=== PATIENT | female | born 1965 | race Caucasian/White ===

== ENCOUNTER 2018-12-03 13:19 | Inpatient (IN) ==
--- NOTE | 2018-12-03 13:57 | Diag Imaging Result Doc PS360 ---
EXAM: CT ABDOMEN/PELVIS W/O CONTRAST 12/03/2018 HISTORY: FLANK PAIN TECHNIQUE: This exam was performed using automated exposure control, adjustment of mA or kV according to patient size, and/or use of iterative reconstruction technique. COMMENT: The current study is compared with the previous examination of 08/04/2016. There are atelectatic changes present in the left lower lobe. There are multiple cysts in the liver which were also present previously. There has been cholecystectomy. There is no evidence of nephrolithiasis or hydronephrosis. There is induration in the mesenteric fat adjacent to the inferior tip of the liver which is associated with multiple surgical clips and which was apparently present previously. There is an ileostomy. There is dilatation of multiple small bowel loops in the midabdomen, which are closely opposed to one another, some of which contain fecalized material. This was not the case at the time the previous examination. The distal small bowel is normal in caliber. The urinary bladder is not distended. There is no evidence of free fluid or free air. The aorta is not distended. The regional skeleton appears to be intact. IMPRESSION: Partial small bowel obstruction presumably due to adhesions. Electronically signed by Taurus Alex 12/03/2018 1:55 PM
[2018-12-03] MEDS ORDERED: NS 1,000 ML IV ONE ×2 (14:01→14:02)
[2018-12-03] MEDS ORDERED: ZOFRAN IV ONE (14:01)
[2018-12-03] MEDS ORDERED: MORPHINE IV ONE (14:01)
[2018-12-03 14:56] LABS: INR 0.89; PROTIME 12.1 Seconds (11.0-16.0)
[2018-12-03 14:57] LABS: PTT 28.1 Seconds (22.3-41.8)
[2018-12-03] MEDS ORDERED: DILAUDID IV ONE (15:08)
[2018-12-03] MEDS ORDERED: ATIVAN IV ONE (15:08)
--- NOTE | 2018-12-03 15:15 | PROVIDER DOCUMENTATION ---
This chart was entered by Massiel Freitas Scribe, acting as scribe for Lobito Franz MD. HPI-Abdominal Pain/GI Problem - General Chief Complaint: Abdominal Pain Stated Complaint: STOMACH PAIN Time Seen by Provider: 12/03/18 13:58 Source: patient, family Allergies/Adverse Reactions: Patient Allergies Allergy/AdvReac Type Severity Reaction Status Date / Time cefdinir [Cefdinir] Allergy ITCHING Verified 10/19/15 12:29 cefepime Allergy ABDOMINAL Verified 10/19/15 12:29 PAIN piperacillin Allergy NAUSEA/VOMI Verified 10/19/15 12:29 TING Quinolones Allergy NAUSEA/VOMI Verified 10/19/15 12:29 TING tazobactam Allergy ITCHING Verified 10/19/15 12:29 vancomycin Allergy RASH Verified 10/19/15 12:29 Home Medications: Home Medication List Medication Instructions Recorded Confirmed Last Taken Type Montelukast Sodium [Singulair] 10 mg PO DAILY 12/24/11 10/19/15 10/18/15 History Oxycodone E.r. [Oxycontin] 20 mg PO BID #1 tablet 10/10/13 10/19/15 10/18/15 Rx Oxycodone E.r. [Oxycontin] 40 mg PO DAILY@1300 #1 tablet 10/10/13 10/19/15 10/18/15 Rx Acetaminophen [Tylenol] 650 mg PO Q4H PRN PRN #0 tablet 01/23/15 10/19/15 10/18/15 Rx Chlorhexidine Gluconate [Peridex] 15 ml MT BID #0 udc 01/23/15 10/19/15 10/18/15 Rx Clonazepam [Klonopin] 0.5 mg PO DAILY #0 tablet 01/23/15 10/19/15 10/18/15 Rx Duloxetine [Cymbalta] 90 mg PO DAILY #0 capsule 01/23/15 10/19/15 10/18/15 Rx Fluticasone/Salmet 250/50 INH 1 puff INH BID #0 inhaler 01/23/15 10/19/15 10/18/15 Rx [Advair 250/50 Diskus] Metoclopramide [Reglan] 5 mg PO AC + HS #120 tablet 01/23/15 10/19/1516 Rx Prednisone 5 mg PO DAILY #0 tablet 01/23/15 10/19/15 10/18/15 Rx Pregabalin [Lyrica] 200 mg PO BID #0 capsule 01/23/15 10/19/15 10/18/15 Rx Sucralfate [Carafate Liquid] 1 gm PO Q6HR #120 udc 01/23/15 10/19/15 10/18/15 Rx Tamsulosin [Flomax] 0.4 mg PO BID #0 capsule 01/23/15 10/19/15 10/18/15 Rx Esomeprazole [Nexium] 40 mg PO DAILY 10/19/15 10/19/15 10/18/15 History Clonazepam [Klonopin] 0.5 mg PO TID@0900,1500,2100 #0 11/03/15 Unknown Rx tablet Levofloxacin [Levaquin] 500 mg PO DAILY #7 tablet 11/03/15 Unknown Rx Metronidazole 500 mg/Ns [Flagyl 500 mg PO Q8H #20 cap 11/03/15 Unknown Rx 500 mg/Ns] Oxycodone HCl/Acetaminophen 1 each PO 4XDAY PRN 11/03/15 11/03/15 Unknown History [Percocet 10-325 mg Tablet] Polyethylene Glycol 3350 [Miralax] 17 gm PO BID #0 powder, packet 11/03/15 Unknown Rx - History of Present Illness-ABD Nature of Presenting Problems: 53 year old female presents to the ER with complaint of abdominal pain that started early this am. Pt has an ileostomy. Pt states the ostomy has produced only minimal fluid this am. Pt states she had nuts yesterday which has caused her problems in the past. Pt has had bowel obstructions in the past. Abdominal Pain Onset Location: reports: generalized abdomen Onset/Duration: reports: this morning Timing: reports: still present Modifying Factors: improves with: eating (pt ate peanuts) Associated Symptoms: reports: nausea Review of Systems - Adult - REVIEW OF SYSTEMS - ADULT Constitutional: denies: chills, fever Eyes: reports: no symptoms reported Ears, Nose, Mouth & Throat: reports: no symptoms reported Cardiovascular: reports: no symptoms reported Respiratory: reports: no symptoms reported Gastrointestinal: reports: abdominal pain, nausea Genitourinary: reports: no symptoms reported Musculoskeletal: reports: no symptoms reported Integumentary: reports: no symptoms reported Neurological: reports: no symptoms reported Psychiatric: reports: no symptoms reported Endocrine: reports: no symptoms reported Hematologic/Lymphatic: reports: no symptoms reported Allergic/Immunologic: reports: no symptoms reported All Other Systems: Reviewed and Negative Past History - Adult - PAST MEDICAL HISTORY-ADULT Review of Records: reports: Nursing Assessment Review, Medications Reviewed Major Childhood Illnesses: reports: denies history Respiratory: reports: asthma Gastrointestinal: reports: colitis - PRIOR SURGERIES/PROCEDURES Surgical/Procedure History: reports: bowel surgery (ileostomy) - IMMUNIZATION STATUS Childhood Immunizations: See Nurse Assessment Flu Vaccine: See Nurse Assessment Physical Exam-General - PHYSICAL EXAM-ADULT Initial Vital Signs Reviewed: Yes - CONSTITUTIONAL General Appearance: alert, mild distress - EYES Eyes: PERRL/EOMI, pink conjunctivae - HEAD, EARS, NOSE, MOUTH & THROAT HENMT: normocephalic/atraumatic, normal ENT inspection - NECK Neck: non-tender, supple - RESPIRATORY Respiratory: lungs clear, normal breath sounds - CARDIOVASCULAR Cardiovascular: normal peripheral pulses, regular rate, rhythm - GASTROINTESTINAL (ABDOMEN) Abdominal Exam: abnormal bowel sounds, tenderness - MUSCULOSKELETAL Back Exam: no CVA tenderness, no vertebral tenderness Extremity: non-tender, normal inspection - SKIN Integumentary: normal color, warm/dry - NEUROLOGIC Neurologic: grossly normal, no motor/sensory deficits - PSYCHIATRIC Psych/Mental Status: normal mood/affect, normal thought content, normal thought process, oriented x 3 Progress - PLAN OF CARE/RESULTS Progress/Plan/Lab Results: Vital Signs - 8 hr 12/03/18 13:20 Temperature 98.4 F Pulse Rate 129 H Respiratory Rate 18 Blood Pressure 193/104 O2 Sat by Pulse Oximetry 98 Orders Category Date Time Status Saline Loc NOW Care 12/03/18 13:[address] ABDOMEN/PELVIS W/O CONTRAST [CT] Stat Exams 12/03/18 13:27 Completed CBC WITH DIFF [HEME] Stat Lab 12/03/18 13:58 Uncollected COMPREHENSIVE METABOLIC PANEL [CHEM] Stat Lab 12/03/18 13:58 Uncollected MAGNESIUM [CHEM] Stat Lab 12/03/18 13:58 Uncollected PROTIME WITH INR [COAG] Stat Lab 12/03/18 13:58 Uncollected PTT [COAG] Stat Lab 12/03/18 13:58 Uncollected Result Diagrams: 12/03/18 14:30 - CT/MRI 1 CT Study: Abdomen Impression: Abnormal, See EMR Report (EXAM: CT ABDOMEN/PELVIS W/O CONTRAST 12/03/2018 HISTORY: FLANK PAIN TECHNIQUE: This exam was performed using automated exposure control, adjustment of mA or kV according to patient size, and/or use of iterative reconstruction technique. COMMENT: The current study is compared with the previous examination of 08/04/2016. There are atelectatic changes present in the left lower lobe. There are multiple cysts in the liver which were also present previously. There has been cholecystectomy. There is no evidence of nephrolithiasis or hydronephrosis. There is induration in the mesenteric fat adjacent to the inferior tip of the liver which is associated with multiple surgical clips and which was apparently present previously. There is an ileostomy. There is dilatation of multiple small bowel loops in the midabdomen, which are closely opposed to one another, some of which contain fecalized material. This was not the case at the time the previous examination. The distal small bowel is normal in caliber. The urinary bladder is not dist ended. There is no evidence of free fluid or free air. The aorta is not distended. The regional skeleton appears to be intact. IMPRESSION: Partial small bowel obstruction presumably due to adhesions.) CT Results: per radiologist Departure - Departure Date of Disposition Decision: 12/03/18 Time of Disposition Decision: 15:15 DIAGNOSIS: SBO (small bowel obstruction) Disposition: ADMITTED INPATIENT 09 Certified Medical Emergency: Emergent Condition: Stable Referrals and Follow-Ups: Mark Mendieta DO [Primary Care Provider] - - Critical Care Note This patient required my direct & personal management of CC.: No Attestation - Physician/ ALBINA Attestation Patient care was provided by Advanced Practice Provider:: No The physician spent face to face time with patient:: Yes Advanced Practice Provider documentation review:: Supervising physician onsite and consulted in the evaluation and care of this patient. The physician did have a face to face encounter with the patient. This chart was documented by the indicated scribe, (Massiel Freitas Scribe) and accurately reflects the services I performed and decisions made by me, Lobito Franz MD, as attested by the provider's signature.
--- NOTE | 2018-12-03 15:17 | Diag Imaging Result Doc PS360 ---
EXAM: CHEST/ABD TUBE PLACEMENT 12/03/2018 HISTORY: ng tube placement TECHNIQUE: AP portable at 1505 COMMENT: There is an NG tube the tip of which appears to be in the gastric body. IMPRESSION: NG tube in the stomach. Electronically signed by Taurus Alex 12/03/2018 3:14 PM
[2018-12-03 15:19] LABS: AGAP 13; ALB/GLOB RATIO 1.8; ALBUMIN 4.8 g/dL (3.5-5.0); ALKALINE PHOSPHATASE 70 U/L (32-104); BUN 17 mg/dL (8-22); CALCIUM 10.3 mg/dL (8.8-10.2); CHLORIDE 99 mmol/L (98-107); COSMO 282; CREATININE 0.5 mg/dL (0.5-0.9); ESTIMATED GFR > 60; GLUCOSE 115 mg/dL (70-104); GOT 30 U/L (10-30); GPT 32 U/L (10-36); MAGNESIUM 1.8 mg/dL (1.5-2.7); POTASSIUM 4.6 mmol/L (3.5-5.1); SODIUM 140 mmol/L (136-145); TCO2 28 mmol/L (25-35); TOTAL PROTEIN 7.5 g/dL (6.3-8.3)
[2018-12-03 15:25] LABS: BASO# 0.02 X1000 (0.0-0.2); BASO% 0.2 % (0.0-0.8); EOS# 0.04 X1000 (0.0-0.7); EOS% 0.4 % (0.0-10.0); HEMATOCRIT 49.8 % (37.0-47.0); HEMOGLOBIN 16.4 g/dL (12.0-16.0); IMM GRAN# 0.04 X1000 (0.0-0.04); IMM GRAN% 0.4 % (0.0-0.5); LYMPH# 1.52 X1000 (1.2-3.4); LYMPH% 13.9 % (20.5-51.1); MCH 31.1 PG (27-31); MCHC 32.9 g/dL (33-37); MCV 94.5 FL (81-99); MONO# 0.83 X1000 (0.11-0.59); MONO% 7.6 % (1.7-9.3); NEUT# 8.45 X1000 (1.4-6.5); NEUT% 77.5 % (42.2-75.2); PLT 235 X1000 (130-400); RBC 5.27 XMIL (4.2-5.4); RDW 12.9 % (11.5-14.5)
[2018-12-03] MEDS ORDERED: SODIUM CHLORIDE 0.9% INJ SCH (16:15)
[2018-12-03] MEDS: NS 1,000 ML IV SCH (16:30)
--- NOTE | 2018-12-03 16:42 | HISTORY AND PHYSICAL ---
ADDENDUM: PRIMARY CARE PHYSICIAN: Dr. Mark Mendieta. I have seen and examined Ms. Ibarra in the emergency room. She is currently with the , a daughter, and a son-in-law. Ms. Ibarra comes in because of abdominal pain. She has been worked up extensively in the emergency room. Imaging studies have revealed a partial small bowel obstruction, presumably due to adhesions. Ms. Ibarra is a 53-year-old, female with a history of borderline hypertension on no medication, previous severe ulcerative colitis, status post total colectomy with ileostomy 25 years ago. Subsequently, she has been having complications of small bowel obstructions. According to Ms. Ibarra, she ate some nuts yesterday and since this morning, she started having abdominal pain associated with some nauseation and one time vomiting. I have reviewed her imaging studies as well as her lab work. She is going to be admitted to the medical floor. NPO, NG tube for GI decompression. Continue with adequate hydration, pain management. Surgery has been consulted. We will follow up with serial KUBs and clinically, and make further recommendations. WORKING DIAGNOSES: 1. Recurrent small bowel obstructions. 2. Status post ileostomy. 3. Clinical volume depletion. 4. Reactive leukocytosis. 5. Chronic pain syndrome. 6. Hypertension, on no pharmacological management. Please refer to the details of the H and P which have been dictated by the DISASTER OR DAMAGE CONTROL SPECIALIST. cc: Pavan Johnson MD
--- NOTE | 2018-12-03 16:46 | HISTORY AND PHYSICAL ---
CHIEF COMPLAINT: Abdominal pain. HISTORY OF PRESENT ILLNESS: This is a 53-year-old female with a prior history of Ulcerative colitis, status post an ileostomy, gastroesophageal reflux disease, and gastroparesis. She presents to the emergency room complaining of abdominal pain that started early this morning. The patient reports eating peanuts last night and symptoms started a few hours after eating. She reports little output from her ileostomy. She carries a history of prior small-bowel obstruction from eating nuts that felt similar to this. A CT of the abdomen and pelvis was performed which revealed a partial small-bowel obstruction. NG tube was placed in the emergency room. She was given Dilaudid, Ativan, and morphine, and she is being admitted for further evaluation and treatment. PAST MEDICAL HISTORY: 1. Chronic pain syndrome. 2. Gastroesophageal reflux disease. 3. Gastroparesis. 4. ulcerative colitis with subsequent ileostomy. 5. Hypertension.. 6. Chronic opiate use SOCIAL HISTORY: She denies tobacco use. She does drink alcohol occasionally. PAST SURGICAL HISTORY: 1. C-sections in 1989 and 1993. 2. Cholecystectomy. 3. Hysterectomy with oophorectomy in 2008. 4. Ileostomy in 1993. 5. Ulcerative colitis, complicated by adhesions requiring at least 6 interventions. 6. Bladder tack in 2004. 7. Volvulus in 2011. ALLERGIES: Cefdinir which causes itching. Cefepime which causes abdominal pain. Piperacillin and quinolones cause nausea and vomiting. Vancomycin causes a rash. HOME MEDICATIONS: A list will be obtained by the nursing staff, and once verified will review and restart as appropriate. REVIEW OF SYSTEMS: Discussed with the patient with pertinent positives stated in HPI. She denied any syncope, dizziness; any chest pain, palpitations, vomiting; any black or bloody stools or vomitus, hematuria, dysuria, frequency, or urgency. PHYSICAL EXAMINATION: GENERAL: This is a 53-year-old female who is sitting up in the bed in the emergency room in mild distress. VITAL SIGNS: Blood pressure is 180/96, with a heart rate 104, respirations are 18, temperature is 98.4 degrees with room air saturations 98%. EYES: Pupils equal, round, and react to light. EOMs are intact. Sclerae are anicteric. HEENT: Head is normocephalic, atraumatic. Mucous membranes are dry. NECK: Supple. Trachea midline. CARDIOVASCULAR: Regular rate and rhythm. S1 and S2 appreciated. Calves are nontender bilaterally. She has no lower extremity edema. Peripheral pulses are palpable x4 extremities. PULMONARY: Breath sounds are clear. No increased work of breathing noted. Chest rises and falls symmetrically with respiration. GASTROINTESTINAL: Abdomen is large and soft. It is tender to palpation generally with hypoactive bowel sounds. NEUROLOGIC: She is alert and oriented x3. SKIN: Warm and dry. LABORATORY DATA: WBC is 10.9 with hemoglobin 16.4, hematocrit 49.8, platelets of 235,000. Sodium is 140, potassium 4.6, BUN 17, creatinine 0.5, glucose of 115. CT of the abdomen and pelvis, partial small-bowel obstruction presumably due to adhesions. ASSESSMENT AND PLAN: 1. Recurrent Partial small bowel obstruction. NG tube was placed in the emergency room. We will continue on low intermittent suction. n.p.o. Dilaudid for pain control. Zofran as needed for nausea. 2. Hypertension. identify her home medications and continue. 3. Gastroesophageal reflux disease. PPI. 4. Ileostomy d/t multiple adhesions d/t ulcerative colitis 5. Chronic pain with chronic opiate use consult Dr. Morin. DVT prophylaxis, SCDs and GI prophylaxis Protonix Plan discussed with Dr Johnson further treatments pending hospital course. Dictated by ANA MARIA Vale for Pavan Johsnon MD cc: ANA MARIA Vale MD [facility]
[2018-12-03] MEDS: DILAUDID IV PRN ×2 (18:07→22:08)
[2018-12-03] MEDS: PROTONIX IV SCH (18:08)
[2018-12-03] MEDS: ZOFRAN IV PRN ×2 (18:08→22:08)
[2018-12-04] MEDS: DILAUDID IV PRN ×6 (02:03→22:37)
[2018-12-04] MEDS: ZOFRAN IV PRN ×6 (02:03→21:27)
[2018-12-04] MEDS: NS 1,000 ML IV SCH ×3 (04:18→21:20)
--- NOTE | 2018-12-04 08:57 | Diag Imaging Result Doc PS360 ---
EXAM: KUB ABDOMEN HISTORY: SBO TECHNIQUE: Portable abdomen single view COMPARISON: 12/03/2018 FINDINGS: There is a nasogastric tube within the stomach. No distended bowel loops identified on the current exam. The multiple surgical clips in the abdomen and pelvis. Scoliosis with degenerative spine changes. IMPRESSION: No definite bowel obstruction. Electronically signed by Cornell Villatoro 12/04/2018 8:55 AM
[2018-12-04] MEDS: EXCEDRIN MIGRAINE PO PRN ×2 (14:47→22:51)
--- NOTE | 2018-12-04 15:26 | PROGRESS NOTE ---
DATE: 12/04/2018 SUBJECTIVE: Today, Ms Ibarra continues to be hurting. I understand there was a lot of drainage from the NG tube. OBJECTIVE: Vital Signs: Blood pressure is 146/81, pulse of 84, respirations are 20, temperature is 98.8. General Examination: Ms. Ibarra is a 53-year-old, female. She is in bed. She is in some mild painful distress. Mucosa is pink and moist. Anicteric. Acyanotic. Neck: Supple. Chest: Good air entry bilaterally. No crepitations. No rhonchi. Cardiovascular: Regular rate and rhythm. GI: Abdomen is soft. Some tenderness all over. There is a scar on the anterior abdominal wall. Bowel sounds present but slightly hyperactive. Extremities: No pedal edema. There is ostomy on the right anterior abdominal wall. LABORATORY DATA: None for today. MEDICATIONS: Have all been reviewed. No new changes. IMAGING: A KUB this morning shows no definite bowel obstruction. ASSESSMENT: 1. Recurrent small bowel obstruction secondary to adhesions. Continue medical management for now. Surgery on board. 2. Status post total colectomy with diverting ileostomy. 3. Clinical volume depletion, improved. 4. Chronic pain syndrome. 5. Hypertension. PLAN: So today, Ms Ibarra continues to be hurting and she is having a lot of drainage through the NG tube, which smell feculent. There has been documentation of 700 mL in 24 hours. We are going to continue with the hydration and pain control. Will await for further recommendations from Surgery. cc: Pavan Johnson MD MTDD
[2018-12-04] MEDS: PROTONIX IV SCH (16:03)
--- NOTE | 2018-12-04 18:22 | GENERAL SURGERY CONSULTATION ---
DATE: 12/04/2018 CHIEF COMPLAINT: Crampy abdominal pain. HISTORY OF PRESENT ILLNESS: This is a pleasant 53-year-old white female who is 25 years after a total abdominal colectomy and ileostomy. This was done for ulcerative colitis. She presents to the emergency department the morning of 12/03/2018 with crampy abdominal pain. PAST HISTORY: Pertinent for chronic pain syndrome, gastroesophageal reflux, gastroparesis, history of ulcerative colitis,hypertension, and chronic opioid use. PAST SURGICAL HISTORY: C section x2, cholecystectomy, hysterectomy, oophorectomy, total abdominal colectomy with ileostomy, bladder tack, and exploratory laparotomy for volvulus in 2011. MEDICATIONS: Listed. ALLERGIES: She has multiple allergies, which are listed. REVIEW OF SYSTEMS: Negative for chest pain and fever. PHYSICAL EXAMINATION: Vital Signs: Temperature is 99.6, heart rate 85, blood pressure 135/68. Lungs: Clear. Heart: Regular rate and rhythm. Abdomen: Soft and quiet. NG output has been 700 mL since admission. IMAGING: CT scan shows a possible partial small bowel obstruction but contrast does go through the small bowel into the ileostomy. ASSESSMENT: Multiple abdominal surgeries with ileostomy. She does not have particularly a dilated small bowel. Partial small bowel obstruction. PLAN: Continue NG suction for 24 more hours and will try to remove it at that time. She does seem to feel better today. Will check her x-ray in the morning as well. cc: Dallas Morin MD
[2018-12-05] MEDS: DILAUDID IV PRN ×4 (02:33→15:41)
[2018-12-05] MEDS: ZOFRAN IV PRN ×4 (02:33→15:42)
[2018-12-05] MEDS: NS 1,000 ML IV SCH ×2 (05:59→13:39)
--- NOTE | 2018-12-05 06:39 | Diag Imaging Result Doc PS360 ---
KUB ABDOMEN - 12/05/2018 INDICATION: sbo COMPARISON: 12/04/2018 FINDINGS: There is a nasogastric tube in the stomach in good position. There are surgical clips in the right upper quadrant and in the central pelvis. There is a nonobstructive bowel gas pattern. No free air or abnormal calcifications. IMPRESSION: No acute disease. Electronically signed by Glenn Henderson 12/05/2018 6:37 AM
--- NOTE | 2018-12-05 15:00 | GENERAL SURGERY PROGRESS NOTE ---
DATE: 12/05/2018 Ms. Ibarra feels better. Her temperature is 99.2 degrees. Hemodynamics were good. She has not had very much out her NG tube. Her abdomen film is nonspecific. The plan then is to remove her NG tube today and allow her to have liquids. cc: Dallas Morin MD
[2018-12-05] MEDS: PROTONIX IV SCH (16:21)
--- NOTE | 2018-12-05 17:42 | PROGRESS NOTE ---
DATE: 12/05/2018 SUBJECTIVE: The patient has no major complaints. Her NG tube is out. She still has some cramping, but is doing okay. She has ostomy output, but it is liquid. OBJECTIVE: Vital Signs: Blood pressure is 130/71, heart rate 79, respiratory rate 24, temperature 99.2 degrees, 97% on room air. Cardiovascular: Regular rate and rhythm. Pulmonary: Bilateral breath sounds clear to auscultation. Gastrointestinal: Soft, nontender, nondistended. Bowel sounds are positive. DIAGNOSTIC STUDIES: White count is 10.9, hemoglobin 16, hematocrit 49, platelets stable; this is from 12/02 and I do not have any chemistry since a couple days ago. PROBLEM LIST: 1. Partial small bowel obstruction. She seems to be doing better. We will continue to monitor. Diet has been advanced. 2. Chronic pain syndrome. We will continue to follow. DISPOSITION: If stable, probably hopefully can get home soon. cc: Miguel Angel Lyle MD MTDD
[2018-12-05] MEDS: EXCEDRIN MIGRAINE PO PRN (18:08)
[2018-12-05 21:09] LABS: AGAP 9; ALB/GLOB RATIO 1.6; ALBUMIN 3.5 g/dL (3.5-5.0); ALKALINE PHOSPHATASE 85 U/L (32-104); BUN 2 mg/dL (8-22); CALCIUM 8.8 mg/dL (8.8-10.2); CHLORIDE 99 mmol/L (98-107); COSMO 270; CREATININE 0.5 mg/dL (0.5-0.9); ESTIMATED GFR > 60; GLUCOSE 106 mg/dL (70-104); GOT 69 U/L (10-30); GPT 208 U/L (10-36); SODIUM 137 mmol/L (136-145); TCO2 29 mmol/L (25-35); TOTAL BILIRUBIN 0.68 mg/dL (0.20-1.00); TOTAL PROTEIN 5.7 g/dL (6.3-8.3)
[2018-12-06 06:30] LABS: BASO# 0.02 X1000 (0.0-0.2); BASO% 0.3 % (0.0-0.8); EOS# 0.11 X1000 (0.0-0.7); EOS% 1.8 % (0.0-10.0); HEMATOCRIT 41.4 % (37.0-47.0); HEMOGLOBIN 13.7 g/dL (12.0-16.0); LYMPH# 1.45 X1000 (1.2-3.4); LYMPH% 23.7 % (20.5-51.1); MCH 31.9 PG (27-31); MCHC 33.1 g/dL (33-37); MCV 96.5 FL (81-99); MONO# 0.62 X1000 (0.11-0.59); MONO% 10.1 % (1.7-9.3); MPV 10.4 FL (7.4-10.4); NEUT# 3.92 X1000 (1.4-6.5); NEUT% 64.1 % (42.2-75.2); PLT 187 X1000 (130-400); RBC 4.29 XMIL (4.2-5.4); RDW 12.4 % (11.5-14.5); WBC 6.12 X1000 (4.8-10.8)
--- NOTE | 2018-12-06 07:25 | GENERAL SURGERY PROGRESS NOTE ---
DATE: 12/06/2018 Ms. Ibarra has done well since last night. She is taking clear liquids. She has had output. Her hemodynamics remained good. Temperature is 99.2 degrees. The plan will be to advance her diet today. cc: Dallas Morin MD
[2018-12-06] MEDS: EXCEDRIN MIGRAINE PO PRN (11:33)
[2018-12-06] MEDS: NS 1,000 ML IV SCH (13:56)
[2018-12-06] MEDS ORDERED: ROBAXIN PO PRN ×2 (16:37→16:50)
--- NOTE | 2018-12-06 17:12 | PROGRESS NOTE ---
DATE: 12/06/2018 SUBJECTIVE: The patient has no major complaints. OBJECTIVE: Vital signs: Blood pressure is 129/75, heart rate 66, respiratory rate 20, temperature 99.2 degrees. Cardiovascular: Regular rate and rhythm. Pulmonary: Bilateral breath sounds. Clear to auscultation. GI: Soft, nontender, nondistended. Bowel sounds are positive. PROBLEM LIST: 1. Partial small bowel obstruction. We will continue treatment and follow. 2. Chronic pain syndrome. She is on her regular medications. DISPOSITION: I anticipate if she is discharged tomorrow she will be able to go home. Anticipate discharge tomorrow if stable. cc: Miguel Angel Lyle MD
[2018-12-06] MEDS: CYMBALTA PO SCH (17:18)
[2018-12-06] MEDS: ADVAIR 250/50 DISKUS INH SCH (19:45)
[2018-12-06] MEDS ORDERED: PERICOLACE PO SCH (21:00)
[2018-12-06] MEDS ORDERED: KLONOPIN PO SCH (21:00)
[2018-12-06] MEDS: NEURONTIN PO SCH (22:00)
[2018-12-07 06:22] LABS: AGAP 12; BUN 4 mg/dL (8-22); CALCIUM 10.3 mg/dL (8.8-10.2); CHLORIDE 101 mmol/L (98-107); COSMO 281; CREATININE 0.5 mg/dL (0.5-0.9); ESTIMATED GFR > 60; GLUCOSE 110 mg/dL (70-104); MAGNESIUM 1.7 mg/dL (1.5-2.7); SODIUM 142 mmol/L (136-145); TCO2 29 mmol/L (25-35)
[2018-12-07 06:35] LABS: POTASSIUM 2.4 mmol/L (3.5-5.1)
[2018-12-07] MEDS ORDERED: PROTONIX PO SCH (07:00)
[2018-12-07] MEDS ORDERED: KLOR-CON PO ONE ×3 (07:09→10:53)
[2018-12-07] MEDS ORDERED: POTASSIUM CHLORIDE 60 MEQ in NS 500 ML IV ONE (08:00)
[2018-12-07] MEDS: ADVAIR 250/50 DISKUS INH SCH (08:06)
[2018-12-07] MEDS: CYMBALTA PO SCH (08:28)
[2018-12-07] MEDS: NEURONTIN PO SCH (08:29)
[2018-12-07] MEDS ORDERED: NS 500 ML ONE (08:34)
[2018-12-07] MEDS ORDERED: ZYRTEC PO SCH (09:00)
--- NOTE | 2018-12-07 11:54 | GENERAL SURGERY PROGRESS NOTE ---
DATE: 12/07/2018 Ms. Ibarra is doing better, she is tolerating her p.o. intake. With her improvement in symptoms it is certainly fine from my point of view for her to go home. cc: Dallas Morin MD
--- NOTE | 2018-12-07 12:31 | DISCHARGE SUMMARY ---
ADMISSION DATE: 12/03/2018 DISCHARGE DATE: 12/07/2018 DISCHARGE DIAGNOSES: 1. Small bowel obstruction, partial small bowel obstruction. 2. Chronic pain syndrome. 3. Hypokalemia. PROCEDURES: None. CONSULTATIONS: Dr. Morin. Briefly, this is a 53-year-old female with GERD, gastroparesis, UC, who came in with a recurrent partial small bowel obstruction. She had an NG placed. Dr. Morin monitored her with serial exams and films. She slowly clinically improved and then I think her NG was removed on the . Her diet was advanced. Her ostomy output continue to improve. She did have some intermittent issues with hypokalemia. She came in with a normal potassium but it did drop, probably from increased insensible losses when the potassium was elevated at 2.4. She also had a mild elevation in her liver enzymes, so this will need to be followed up with Dr. Mark Mendieta, who is her primary care physician. She did get a significant dosage of potassium prior to discharge because she was 2.6, and she will be discharged on potassium and she will need to follow up with Dr. Mendieta in 1 week for repeat potassium. Follow up with Dr. Morin in 1 to 2 weeks. Cymbalta 60, ibuprofen 200 b.i.d., Neurontin 600 b.i.d., Nexium 40 daily, Robaxin 750, sennosides-docusate, Zyrtec 5, Advair 250/50 b.i.d., clonidine 0.5, Klor-Con 40 daily, prednisone 5 daily, and p.r.n. Tylenol. Do not know if she is still taking the prednisone. DISCHARGE CONDITION: Stable. She will need repeat liver enzymes. Will continue to follow. 32 minute discharge. cc: MD Mark Burnett, DO
[2018-12-07 12:32] VITALS: BP 126/72
[2018-12-08 14:43] LABS: HEPATITIS PROFILE ACUTE SEE COMMENTS
== END 2018-12-07 14:33 | disposition home or self-care (01) | DRG 389 ==
LOC: ED 13:19 → 4N 17:03 → SUATTDRO 17:03
PROVIDERS: ATTEND Internal Medicine